=== PATIENT | female | born 1970 | race Caucasian/White ===

== ENCOUNTER 2020-12-20 14:23 | Emergency (ER) | payer OTHER ==
[~2020-12-20] VITALS: Ht 162.6 cm; Wt 77.1 kg
[~2020-12-20 14:23] MED LIST: COLACE100 MG PO; HYDROCODONE-AP1 EAC6 PO; IBUPROFEN 800800 M1 PO; NOHOMEMEDICATIONS; PAXIL10 MG; SIMETHICON CHEW80 M1 PO
[2020-12-20 15:01] LABS: ABSOLUTE NEUTROPHILS 5.5 thou/uL (1.4-8.2); BASOPHILS 0.6 % (0.0-2.0); EOSINOPHILS 9.2 % (0.0-3.0); HEMATOCRIT 40.2 % (37.0-47.0); HEMOGLOBIN 14.3 gm/dL (12.0-15.0); LYMPHOCYTES 27.1 % (24.0-44.0); MCH 33.4 pg (26.0-34.0); MCHC 35.6 g/dL (28.0-37.0); MONOCYTES 7.3 % (1.0-8.0); PLATELET COUNT 302 thou/uL (150-400); POLYS 55.8 % (36.0-66.0); RBC 4.28 mil/uL (4.20-5.00); RDW 13.2 % (10.5-14.5); WBC 9.9 thou/uL (4.0-11.0)
[2020-12-20 15:11] LABS: ANION GAP 7 mmol/L (7-16); BUN 14 mg/dL (7-18); CALCIUM 8.3 mg/dL (8.5-10.1); CHLORIDE 106 mmol/L (98-107); CO2 28 mmol/L (21-32); CREATININE 0.9 mg/dL (0.6-1.0); GLUCOSE 111 mg/dL (74-106); POTASSIUM 3.5 mmol/L (3.5-5.1); SODIUM 141 mmol/L (136-145)
[2020-12-20 15:22] LABS: ALBUMIN 3.6 g/dL (3.4-5.0); LIPASE 144 U/L (73-393); SGOT 15 U/L (15-37); SGPT 21 U/L (30-65); TOTAL BILIRUBIN 0.3 mg/dL (0.2-1.0); TOTAL PROTEIN 7.4 g/dL (6.4-8.2); TROPONIN-I <0.06 ng/mL (<0.06)
[2020-12-20] MEDS ORDERED: NAPROSYN500 MG PO (17:53)
[2020-12-20] MEDS ORDERED: PEPCID40 MG PO (17:53)
[2020-12-20 18:40] VITALS: BP 126/79
--- NOTE | 2020-12-21 07:38 | EKG ---
[place] [address] [facility] [place] [address] ELECTROCARDIOGRAM REPORT Name: TERRI CASANOVA Room #: KAYCEE Brar#: [id number] Admission: 12/20/20 Attend Phys: Discharge: 12/20/20 Date of : 74 Report #: [id number] [facility] ED Test Date: 2020-12-20 Test Time: 14:26:33 Pat Name: TERRI CASANOVA Department: Room: Gender: F Poultry Trimmer: : 1970 Requested By: Khadijah Chi Order Number: [id number] MD: Gonzalez Xie Measurements Intervals [place] Rate: 71 P: 56 MI: 140 QRS: 32 QRSD: 76 T: 22 QT: 389 QTc: 423 Interpretive Statements Sinus rhythm No previous ECG available for comparison Electronically Signed On 12-21-2020 7:38:40 CDT by Gonzalez Xie [email or web address] <ELECTRONICALLY SIGNED> By: Gonzalez Xie MD, [facility] 12/21/20 0738 1426 1426 Gonzalez Xie MD, FACC /EPI
== END 2020-12-20 18:43 | disposition home or self-care (01) ==
LOC: ER 14:23
PROVIDERS: Emergency Medicine
DX: R07.89 Other chest pain (principal); Z79.891 Long term (current) use of opiate analgesic; Z79.1 Long term (current) use of non-steroidal anti-inflammatories (NSAID); Z79.899 Other long term (current) drug therapy